=== PATIENT | female | born 1985 | race Caucasian/White ===

== ENCOUNTER 2019-10-04 06:19 | Inpatient (IN) | payer BC ==
[2019-10-04] VITALS (62 sets, daily range): BP systolic 105–146; BP diastolic 53–87; PULSE 52–88; TEMP 98.1–98.6
[~2019-10-04] VITALS: Ht 175.3 cm; Wt 94.5 kg
--- NOTE | 2019-10-04 06:15 | NUR ---
Care of pt assumed from Louie Marc RN. SVE /-3 clear fluid with brown flecks noted at 0500. Denies vaginal bleeding and reports GFM. Dr. Solares notified. See physician notification. Admission assessment completed. Consents signed. Reviewed POC. Pt verbalizes understanding. Bed locked in low position. Call light within reach. No questions or concerns at this time.
[2019-10-04] MEDS ORDERED: PRENATAL TABLET PO (06:38)
[2019-10-04] MEDS ORDERED: CELEXA 20MG20 MG/TAB PO (06:38)
[2019-10-04] MEDS ORDERED: PROAIR HFA0.09 MG/AC IH (06:38)
[2019-10-04 08:08] LABS: BASO % 0.1 % (0.0-2.0); EOS % 0.5 % (0-4.0); GRAN # 6.4 (1.4-6.5); HEMOGLOBIN 11.5 g/dl (12.5-16.0); LYMPH # 1.9 (1.2-3.4); LYMPH % 20.8 % (20.0-51.0); MEAN CELL VOLUME 94 fl (80.0-100.0); MEAN CORPUSCULAR HEMOGLOBIN 31 pg (27.0-31.0); MEAN CORPUSCULAR HGB CONC 33 g/dl (33.0-37.0); MEAN PLATELET VOLUME 10.8 fl (7.4-10.4); MONO # 0.5 (0.1-0.6); MONO % 6.1 % (1.7-9.3); PLATELET COUNT 209 K/mm3 (130-400); RED BLOOD COUNT 3.77 M/mm3 (4.10-5.30); REDCELL DISTRIBUTION WIDTH-CV 13.2 % (11.5-14.5)
[2019-10-04 08:14] LABS: HEMATOCRIT 35.3 % (37.0-47.0)
--- NOTE | 2019-10-04 08:56 | NUR ---
Late deceleration noted. 60BPM at lowest. RN at bedside. Pt repositioned LL. Pulse ox applied to differentiate HR discrepency. SVE per Surekha Monroy RN /-3. Vertex position. SS performed. FHR returns to [address] Solares on unit.
[2019-10-04 11:10] LABS: TRICYCLIC ANTIDEPRESS URINE NEGATIVE
--- NOTE | 2019-10-04 12:31 | NUR ---
Pt sitting at EOB for epidural placement. Difficulty tracing FHR due to maternal position. RN at bedside adjusting monitors. FHR audible.
--- NOTE | 2019-10-04 18:20 | NUR ---
Report received from Karena KIM. Pt sitting up in bed drinking tea. Plan of care explained and questions answered. Pt denies needing anything else at this time. 1851: Pt repositioned to Right lateral with peanut ball. Pericare provided. 1944: at bedside. SVE 4 per provider. Orders to up pitocin up to 30mus/hr. Pitocin increased to 22mus/hr at this time. Pt updated on plan of care. Pt repositioned to Left lateral with peanut ball.
--- NOTE | 2019-10-04 23:08 | NUR ---
heart rate increasing. Maternal temp 98.2. SVE 5-6/90/-1, internal exam felt warm. 2325: updated on pts status. See physican notification. 0035: Maternal temp 100.8. Tylenol administered per 's orders. Will continue to monitor.
[2019-10-05] VITALS (34 sets, daily range): BP systolic 108–135; BP diastolic 54–81; PULSE 57–101; TEMP 97.7–100.8
--- NOTE | 2019-10-05 02:22 | NUR ---
Maternal temp remains 100.2 after tylenol administration. SVE unchanged. 0237: Dr. Solares updated on pts status. See physican notification. 0255: at bedside. SVE unchanged. Decision for made at this time. Pitocin stopped. Procedure explained to pt and significant other at this time. Questions answered. Pt begins getting prepped for . 0311: Pt off monitors and wheeled back in bed for . Pt's significant other to OR as well.
--- NOTE | 2019-10-05 13:46 | NUR ---
Sw received a referral for patient due to history of Marijuana use. SW met with patient with baby in the room, as well as patients life partner Sulema. Patient gave Sw permission to discuss information with Sulema present. patient has resided in [facility] for some time with her partner. this is their first baby, and nurse described patient as very inquisitive and attentive to the baby. When SW met with patient she was coddling baby on her shoulder. Bot patient and life partner work on [employer], Sulema in physics and Patient with [employer]. We discussed potential needs of the family and concerns due to the current pandemic. Patient reports a history of using marijuana to address symptoms for anxiety and depression. patient did report a history of mental health concerns, and that she has not used marijuana since before she found out she was pegnant. Sw indicated that a report would not be filed, and provided community resources to patient.
--- NOTE | 2019-10-05 18:45 | NUR ---
Report recieved. Whiteboard updated and POC reviewed. Attempting to breastfeed while sitting up on the side of the bed. Infant alert and awake, uninterested in latching. Offered assistance, assisted with repositioning at this time. Pt states, "If she wont latch right now for me then I will just have to wait till tomorrow when I can see the validation consultant." Offered continued assistance, listened to recommendations however continued to do as she previously was. Pt and significant other verbalized frustrations with the abx for herself and the infant as well as with "how many sticks we have had." Discussed POC at length with pt and significant other at this time.
--- NOTE | 2019-10-05 22:30 | NUR ---
Upon flushing pt's INT pt reports it is painful and not tolerable. Site is free from reddness, swelling or drainage. Dr. Nina notified at this time. Order recieved to DC abx. Pt informed and INT dc'd per order. Pt reports she is glad it is out.
[2019-10-06 07:23] VITALS: BP 98/64; PULSE 78; TEMP 98.2
[2019-10-06 07:23] LABS: HEMOGLOBIN 10.5 g/dl (12.5-16.0); MEAN CELL VOLUME 96 fl (80.0-100.0); MEAN CORPUSCULAR HEMOGLOBIN 31 pg (27.0-31.0); MEAN CORPUSCULAR HGB CONC 32 g/dl (33.0-37.0); MEAN PLATELET VOLUME 10.8 fl (7.4-10.4); PLATELET COUNT 219 K/mm3 (130-400); RED BLOOD COUNT 3.43 M/mm3 (4.10-5.30); REDCELL DISTRIBUTION WIDTH-CV 13.7 % (11.5-14.5)
[2019-10-06] MEDS ORDERED: IBU600 MG PO (12:23)
[2019-10-06] MEDS ORDERED: PERCOCET 325 MG1 TA2 PO (12:23)
[2019-10-06 15:57] VITALS: BP 136/78; PULSE 76; TEMP 98.2
[2019-10-06 20:00] VITALS: BP 110/65; PULSE 82; TEMP 98.2
[2019-10-07 08:01] LABS: BASO % 0.3 % (0.0-2.0); EOS # 0.1 (0.0-0.7); EOS % 1.2 % (0-4.0); GRAN # 7.2 (1.4-6.5); GRAN % 69.7 % (42.2-75.2); LYMPH # 2.5 (1.2-3.4); LYMPH % 23.6 % (20.0-51.0); MEAN CELL VOLUME 97 fl (80.0-100.0); MEAN CORPUSCULAR HGB CONC 32 g/dl (33.0-37.0); MEAN PLATELET VOLUME 10.7 fl (7.4-10.4); MONO # 0.5 (0.1-0.6); MONO % 4.8 % (1.7-9.3); PLATELET COUNT 222 K/mm3 (130-400); REDCELL DISTRIBUTION WIDTH-CV 13.9 % (11.5-14.5)
[2019-10-07 08:16] LABS: HEMATOCRIT 28.2 % (37.0-47.0); MEAN CORPUSCULAR HEMOGLOBIN 31 pg (27.0-31.0)
[2019-10-07 09:42] VITALS: BP 120/77; PULSE 86; TEMP 98
--- NOTE | 2019-10-07 13:15 | NUR ---
DISCHARGE INSTRUCTIONS GONE OVER WITH PARENTS. FATHER OF BABY "MAYA" INFORMS THIS NURSE THAT SHE HAS NOTICED AN INTERMITTENT COUGH FOR HERSELF SINCE LAST NIGHT. THIS NURSE ASKS "MAYA" ABOUT FEVER, SHORTNESS OF BREATH OR FATIGUE. "MAYA" DENIES ANY OF THESE SYMPTOMS. THIS NURSE ENCOURAGES "MAYA" TO SEEK MEDICAL CARE IF FEVER DEVELOPS OR COUGH WORSENS.
== END 2019-10-07 13:45 | disposition home or self-care (01) | DRG 787 ==
LOC: LDRO 06:19 → LDR 06:32 → OB 10-05 05:00
PROVIDERS: Obstetrics & Gynecology; Student in an Organized Health Care Education/Training Program; ADMIT Obstetrics & Gynecology
PROC: 10D00Z1 Extraction of Products of Conception, Low, Open Approach (ICD-10-PCS; principal; 2019-10-04)
PROC: 10H07YZ Insertion of Other Device into Products of Conception, Via Natural or Artificial Opening (ICD-10-PCS; 2019-10-04)
DX: O41.1230 Chorioamnionitis, third trimester, not applicable or unspecified (principal); D62 Acute posthemorrhagic anemia; Z3A.40 40 weeks gestation of pregnancy; Z37.0 Single live birth; O62.1 Secondary uterine inertia; O99.52 Diseases of the respiratory system complicating childbirth; O99.344 Other mental disorders complicating childbirth; F41.9 Anxiety disorder, unspecified; F32.9 Major depressive disorder, single episode, unspecified; J45.20 Mild intermittent asthma, uncomplicated; O90.81 Anemia of the puerperium
CPT/HCPCS: J0290; J0690; J1100; J1580; J1885; J2590; J3010; J7120

== ENCOUNTER 2019-12-19 05:27 | Observation (INO) | payer BC ==
[~2019-12-19] VITALS: Ht 175.3 cm; Wt 80.9 kg
[2019-12-19] VITALS (8 sets, daily range): BP systolic 110–133; BP diastolic 45–82; PULSE 61–81; TEMP 98–98.7
[~2019-12-19 05:27] MED LIST: CELEXA 20MG20 MG/TAB PO; IBU600 MG PO; PERCOCET 325 MG1 TA2 PO; PRENATAL TABLET PO; PROAIR HFA0.09 MG/AC IH
[2019-12-19 05:44] LABS: COLLECTION METHOD CLEAN CATCH
[2019-12-19 05:47] LABS: BASO % 0.4 % (0.0-2.0); EOS # 0.3 (0.0-0.7); EOS % 2.3 % (0-4.0); GRAN # 7.4 (1.4-6.5); GRAN % 66.2 % (42.2-75.2); HEMATOCRIT 40.5 % (37.0-47.0); HEMOGLOBIN 13.1 g/dl (12.5-16.0); LYMPH # 2.8 (1.2-3.4); LYMPH % 25.1 % (20.0-51.0); MEAN CELL VOLUME 92 fl (80.0-100.0); MEAN CORPUSCULAR HEMOGLOBIN 30 pg (27.0-31.0); MEAN CORPUSCULAR HGB CONC 32 g/dl (33.0-37.0); MEAN PLATELET VOLUME 9.6 fl (7.4-10.4); MONO # 0.6 (0.1-0.6); MONO % 5.7 % (1.7-9.3); PLATELET COUNT 302 K/mm3 (130-400); REDCELL DISTRIBUTION WIDTH-CV 12.5 % (11.5-14.5)
[2019-12-19 05:51] LABS: MUCOUS Present /lpf; PH 5 (5-8); URINE APPEARANCE Hazy; URINE BACTERIA Rare /hpf; URINE BILIRUBIN Negative (NEGATIVE); URINE BLOOD Negative (NEGATIVE); URINE COLOR Yellow; URINE GLUCOSE Negative (NEGATIVE); URINE KETONE Negative (NEGATIVE); URINE LEUKOCYTE ESTERASE 2+ (NEGATIVE); URINE NITRATE Negative (NEGATIVE); URINE PROTEIN(semi-quant) Negative (NEGATIVE); URINE UROBILINOGEN Negative (NEGATIVE)
[2019-12-19 05:59] LABS: ALBUMIN 4.8 gm/dL (3.5-5.0); BILIRUBIN,TOTAL 0.4 mg/dL (0.0-1.0); C-REACTIVE PROTEIN 2.6 mg/dL (0.0-0.9); CALCIUM 9.6 mg/dL (8.4-10.2); CREATININE, serum 1.04 (0.52-1.25); POTASSIUM 3.7 mmol/L (3.4-5.0); TOTAL PROTEIN 8.2 gm/dL (6.4-8.2)
[2019-12-19] MEDS ORDERED: CARAFATE 1GM1 G PO (07:19)
[2019-12-19] MEDS ORDERED: PROTONIX 40MG T40 MG PO (07:19)
[2019-12-19] MEDS ORDERED: ZOFRAN ODT4 MG PO (07:19)
[2019-12-19] MEDS ORDERED: CEFTIN500 MG PO (07:28)
[2019-12-19] MEDS ORDERED: TYLENOL 325MG325 MG PO (10:21)
[2019-12-19] MEDS ORDERED: NORCO 325 MG-51 TAB PO (17:01)
== END 2019-12-19 20:35 | disposition home or self-care (01) ==
LOC: COL.ER 05:27 → JCC 09:28 → SDCO 09:28 → JCC 14:15
PROVIDERS: Emergency Medicine; ADMIT Surgery
DX: K80.00 Calculus of gallbladder with acute cholecystitis without obstruction (principal); J45.909 Unspecified asthma, uncomplicated; F32.9 Major depressive disorder, single episode, unspecified; F41.9 Anxiety disorder, unspecified
CPT/HCPCS: C9113; G0378; J0690; J0696; J1100; J1885; J2175; J2405; J2704; J2710; J3010; J7030; J7120; Q9967